=== PATIENT | female | born 1960 | race Caucasian/White ===

== ENCOUNTER 2018-05-07 11:11 | Outpatient (CLI) | payer BC ==
[2018-05-07 12:25] LABS: #Basophils 0.1 thou/uL (0.0-0.2); #Eosinphils 0.3 thou/uL (0.0-0.7); #Lymphocytes 3.4 thou/uL (1.20-3.40); #Monocytes 0.4 thou/uL (0.11-0.59); #Neutrophils 3.9 thou/uL (1.40-6.50); %Basophils 1.5 % (0.0-1.0); %Eosinophils 3.7 % (0.0-10.0); %Lymphocytes 41.7 % (21.0-51.0); %Monocytes 5.2 % (0.0-10.0); %Neutrophils 47.9 % (42.0-75.0); Hemoglobin 14.5 g/dL (12.0-16.0); Mean Corpuscular HGB CONC 33.9 g/dL (32.0-36.0); Mean Corpuscular Hemoglobin 29.9 pg (27.0-31.0); Mean Corpuscular Volume 88.1 fL (78.0-98.0); Platelet Count 201 thou/uL (130-400); RBC Distribution Width 12.6 % (11.5-14.5); Red Blood Cell (RBC) Count 4.83 mill/uL (4.20-5.40); White Blood Cell (WBC) Count 8.2 thou/uL (4.8-10.8)
[2018-05-07 12:50] LABS: ALT (SGPT) 19 U/L (8-55); AST (SGOT) 14 U/L (5-34); Albumin 4.4 g/dL (3.5-5.0); Alkaline Phosphatase 98 U/L (40-150); Anion Gap 12 mmol/L (10-20); BUN (Urea Nitrogen) 9 mg/dL (9.8-20.1); Bilirubin, Total 0.3 mg/dL (0.2-1.2); Calc. Creatinine Clearance 0 mL/min (70-130); Calcium 9.8 mg/dL (7.8-10.44); Carbon Dioxide 24 mmol/L (22-29); Chloride 106 mmol/L (98-107); Estimated GFR-MDRD 85; Globulin 3.4 g/dL (2.4-3.5); Glucose 84 mg/dL (70-105); Potassium 3.7 mmol/L (3.5-5.1); Protein, Total 7.8 g/dL (6.0-8.3); Sodium 138 mmol/L (136-145)
--- NOTE | 2018-05-10 15:00 | EKG ---
Test Reason : Blood Pressure : / mmHG Vent. Rate : 060 BPM Atrial Rate : 060 BPM P-R Int : 142 ms QRS Dur : 078 ms QT Int : 420 ms P-R-T Axes : 037 071 051 degrees QTc Int : 420 ms Normal sinus rhythm Low voltage QRS Borderline ECG No previous ECGs available Confirmed by KATELYN JORGE MD ([id number]) on 05/10/2018 3:00:22 PM Referred By: MICA Confirmed By:KATELYN JORGE MD
== END 2018-05-07 11:12 | disposition home or self-care (01) ==
LOC: LABBT 11:11
PROVIDERS: ATTEND Surgery
DX: Z01.818 Encounter for other preprocedural examination (principal); D17.39 Benign lipomatous neoplasm of skin and subcutaneous tissue of other sites
CPT/HCPCS: 80053; 85025; 93005; 93010

== ENCOUNTER 2018-05-15 05:44 | Day surgery (SDC) | payer BC ==
[2018-05-07 11:20] VITALS: BMI 31.1
[2018-05-15] MEDS ORDERED: CEFAZOLIN/Water 2 GM/20 ML SYRINGE ONE (06:00)
[2018-05-15] MEDS ORDERED: Bupivacaine/Epinephrine 0.25% 30 ML VIAL ONE (06:40)
[2018-05-15] MEDS ORDERED: Midazolam HCl 2 mg/2 ml Vial ONE (07:10)
[2018-05-15] MEDS ORDERED: Fentanyl 100 MCG/2 ML VIAL ONE (07:11)
--- NOTE | 2018-05-15 10:11 | OP ---
PREOPERATIVE DIAGNOSIS: Lipoma of the left upper back. SURGEON: Juan Miguel Murray M.D. PROCEDURE PERFORMED: Excisional biopsy. INDICATIONS: A 57-year-old female who had enlarging soft tissue mass over the left scapula. FINDINGS: It was a 4 x 4 cm sebaceous cyst. PROCEDURE IN DETAIL: After informed consent was obtained, the patient was taken to the operating andrew m and given general endotracheal anesthesia. She was placed in the right lateral decubitus position, left side up and her skin was prepped and draped in usual fashion. Local anesthesia infiltrated sub cutaneously and deep. A transverse incision was performed. The subcu divided sharply. It turned ou t to be a sebaceous cyst. Cultures were obtained. The cyst cavity was completely excised. It was v agus large. Hemostasis achieved with electrocautery. Subcutaneous reapproximated with interrupted 3- 0 Vicryl. Skin closed with a running subcuticular 4-0 Rapide. Steri-Strips applied. Sterile bandag e applied. The patient tolerated the procedure well and was transferred to recovery in good conditio n. Sponge and needle count verified correct x2.
[2018-05-15] MEDS ORDERED: ePHEDrine/0.9% NaCl/PF SYRINGE 50 mg/10 ml ONE (12:20)
[2018-05-15] MEDS ORDERED: Lidocaine 1% PF 5 ML VIAL ONE (12:20)
[2018-05-15] MEDS ORDERED: PROPOFOL 200 MG/20 ML VIAL ONE (12:20)
[2018-05-15] MEDS ORDERED: Ondansetron HCl/PF 4 MG/2 ML Vial ONE (12:20)
--- NOTE | 2018-05-23 05:32 | PQF ---
[facility] POST DISCHARGE CLINICAL DOCUMENTATION IMPROVEMENT CLARIFICATION FORM l Todays Date: 05/23/18 l Patients Name Bartolome carver l l Admit Date 05/15/18 l Disch Date 05/15/18 l Client Liaison Name Luanne Anna Email: [email or web address] Cell: [phone] Present Clinical Indicators - Signs / Symptoms Results and Location in Medical Record [ ] Documentation of: [ ] [ ] Documentation of: [ ] [ ] Documentation of: [ ] [ ] Documentation of: [ ] [ ] Risks [ ] [ ] [ ] Treatment [ ] Missing margin size for excision scapula in [employer] Please specify the margin size for excision scapula [ ] [ ] Dr Trevor Blunt The documentation in this patients record requires clarification to ensure coding compliance and accuracy. Check the appropriate box and include in your discharge summary. [ ] [ ] [ ] [ ] Please check this box if this does not apply to this patient [ ] Unable to determine [ ] Other diagnosis: Review the following information and exercise your independent professional judgment in responding to the clarification. Based upon the clinical findings, risk factors, and treatment, please clarify if you are treating one of the above probable or suspected diagnoses. Physician Signature: Date Time MTDD
--- NOTE | 2018-06-14 09:48 | PQF ---
POST DISCHARGE CLINICAL DOCUMENTATION IMPROVEMENT CLARIFICATION FORM l Todays Date: 06/14/2018 l Patients Name Humberto Mancuso l l Admit Date 05/15/2018 l Disch Date 05/15/2018 [employer] Contact Name: Email: Cell: Present Clinical Indicators - Signs / Symptoms Results and Location in Medical Record [ ] Documentation of: [ ] [ ] [ ] Risks [ ] [ ] [ ] Treatment [ ] Excision of biopsy of scapula Please specify the margin size for biopsy excision [ ] [ ] Juan Miguel Reyes The documentation in this patients record requires clarification to ensure coding compliance and accuracy. Check the appropriate box and include in your discharge summary/addendum. [ x] ____6 by 4.8 by1.4 cm [ ] [ ] Please check this box if this does not apply to this patient [ ] Unable to determine [ ] Other diagnosis/procedure: Review the following information and exercise your independent professional judgment in responding to the clarification. Based upon the clinical findings, risk factors, and treatment, please clarify if you are treating one of the above probable or suspected diagnoses. Physician Signature: Date Time MTDD
== END 2018-05-15 09:29 | disposition home or self-care (01) ==
LOC: SDC 05:44
PROVIDERS: ATTEND Surgery
PROC: 0HB6XZZ Excision of Back Skin, External Approach (ICD-10-PCS; principal; 2018-05-15)
PROC: 0JQ70ZZ Repair Back Subcutaneous Tissue and Fascia, Open Approach (ICD-10-PCS; principal; 2018-05-15)
DX: L72.0 Epidermal cyst (principal); E11.9 Type 2 diabetes mellitus without complications; Z79.84 Long term (current) use of oral hypoglycemic drugs; Z79.899 Other long term (current) drug therapy
CPT/HCPCS: 87070; 87205; 88304; J2001; J2250; J2405; J2704; J3010

== ENCOUNTER 2019-05-27 13:25 | Outpatient (CLI) | payer BC ==
--- NOTE | 2019-05-27 13:42 | RAD ---
EXAM: Two views chest PROVIDED CLINICAL HISTORY: Dyspnea COMPARISON: 06/06/2016 FINDINGS: Cardiac silhouette remains mildly enlarged. The pulmonary vasculature is within normal limits. The ruth ann ngs are clear. Mild degenerative changes are again seen in the spine. Surgical clips overlie the right upper quadrant. Chest is overall stable compared to prior study. IMPRESSION: No acute cardiopulmonary process.
== END 2019-05-27 13:26 | disposition home or self-care (01) ==
LOC: RAD 13:25
PROVIDERS: ATTEND Internal Medicine Critical Care Medicine
DX: R06.00 Dyspnea, unspecified (principal)
CPT/HCPCS: 71046

== ENCOUNTER 2019-09-24 08:56 | Outpatient (CLI) | payer BC ==
--- NOTE | 2019-09-24 09:52 | RAD ---
CHEST TWO VIEWS: HISTORY: Dyspnea. COMPARISON: Radiograph from 05/27/2019. FINDINGS: The lungs are clear. No pneumothorax. No effusion. No acute osseous abnormality. The cardiac silhouet te and mediastinal contour is within normal limits. Right upper quadrant surgical clips. IMPRESSION: No acute intrathoracic abnormality. POS: CET
== END 2019-09-24 08:57 | disposition home or self-care (01) ==
LOC: RAD 08:56
PROVIDERS: ATTEND Internal Medicine Critical Care Medicine
DX: R06.00 Dyspnea, unspecified (principal)
CPT/HCPCS: 71046

== ENCOUNTER 2020-03-05 09:12 | Outpatient (CLI) | payer BC ==
--- NOTE | 2020-03-05 09:26 | RAD ---
EXAM: Two views chest PROVIDED CLINICAL HISTORY: Dyspnea COMPARISON: 09/24/2019 FINDINGS: Cardiac silhouette and pulmonary vasculature are within normal limits. The lungs are clear. Degenera tive changes in the spine. Surgical clips are again seen overlying the right upper quadrant. Chest is stable compared to prior study. IMPRESSION: No acute cardiopulmonary process.
== END 2020-03-05 09:13 | disposition home or self-care (01) ==
LOC: BICRAD 09:12
PROVIDERS: ATTEND Internal Medicine Critical Care Medicine
DX: R06.00 Dyspnea, unspecified (principal)
CPT/HCPCS: 71046

== ENCOUNTER 2021-06-23 14:39 | Outpatient (CLI) | payer BC | END 2021-06-23 14:40 | disposition home or self-care (01) | LOC: BICRAD 14:39 | PROVIDERS: ATTEND Internal Medicine Critical Care Medicine | DX: R06.00 Dyspnea, unspecified (principal) | CPT/HCPCS: 71046 ==